=== PATIENT | female | born 1985 | race African-American/Black ===

== ENCOUNTER 2024-03-01 08:28 | Inpatient (IN) | payer SELFPAY ==
[~2024-03-01] VITALS: Ht 165.1 cm; Wt 164.1 kg
[2024-03-01] MEDS ORDERED: HYDROmorphone 0.5 MG/0.5 ML SYRINGE IV ONE ×3 (09:00→11:15)
[2024-03-01] MEDS ORDERED: NS 1,000 ML IV ONE ×2 (09:00→11:30)
[2024-03-01] MEDS ORDERED: diphenhydrAMINE 50 MG/ML 1 ML VIAL IV ONE ×3 (09:00→11:15)
[2024-03-01 09:10] LABS: BASO % 0.6 % (0.0-2.0); EOS # 0.1 K/mm3 (0.0-0.7); EOS % 0.9 % (0.0-4.0); GRAN # 4.5 K/mm3 (1.4-6.5); GRAN % 64.5 % (42.2-75.2); LYMPH # 1.9 K/mm3 (1.2-3.4); LYMPH % 27.6 % (20.0-51.0); MEAN CELL VOLUME 69 fl (80.0-100.0); MEAN CORPUSCULAR HGB CONC 29 g/dl (33.0-37.0); MEAN PLATELET VOLUME 8.9 fl (7.4-10.4); MONO # 0.4 K/mm3 (0.1-0.6); MONO % 5.8 % (1.7-9.3); PLATELET COUNT 451 K/mm3 (130-400); RED BLOOD COUNT 4.87 M/mm3 (4.10-5.30)
[2024-03-01 09:12] LABS: HEMATOCRIT 33.6 % (37.0-47.0); HEMOGLOBIN 9.6 g/dl (12.5-16.0); MEAN CORPUSCULAR HEMOGLOBIN 20 pg (27-31)
[2024-03-01 09:19] LABS: INR 1.6 (0.8-3.0); PROTHROMBIN TIME 17.3 SECONDS (9.7-12.8)
[2024-03-01 09:21] LABS: PARTIAL THROMBOPLASTIN TIME 35.6 SECONDS (26.0-37.0)
[2024-03-01 09:29] LABS: ALBUMIN 3.8 g/dL (3.5-5.0); BILIRUBIN,TOTAL 0.3 mg/dL (0.2-1.2); CALCIUM 9.1 mg/dL (8.4-10.2); CREATININE, serum 0.79 mg/dL (0.57-1.11); POTASSIUM 3.7 mEq/L (3.5-4.5); TOTAL PROTEIN 7.8 g/dl (6.2-8.1)
[2024-03-01] MEDS ORDERED: HYDROXYURE500 MG/CAP PO (13:17)
[2024-03-01] MEDS ORDERED: COUMADIN 5MG5 MG/TAB PO (13:18)
[2024-03-01] MEDS ORDERED: OXYCONTIN60 MG PO (13:20)
[2024-03-01] MEDS ORDERED: FOLIC ACID 11 MG/TA1 PO (13:21)
[2024-03-01] MEDS ORDERED: PERCOCET 325 MG1 TAB PO (13:21)
[2024-03-01] MEDS ORDERED: SEROQUEL 1100 MG/TAB PO (13:22)
[2024-03-01 14:02] VITALS: BP 118/77; PULSE 80; TEMP 98
--- NOTE | 2024-03-01 14:05 | NUR ---
PATIENT CAME FROM ER.PATIENT REPORTS PAIN ALL OVER JOINTS/ BODY AND RATES IT A 10/10. PATIENT CAME WITH A PICC LINE IN RIGHT UPPER ARM PLACED IN [place] WHERE SHE IS FROM. SHE IS CURRENTLY VISITING.PATIENT ASSESSMENT COMPLETED. CALL LIGHT WITHIN REACH. BED AT LOWEST POSITION.
[2024-03-01] MEDS ORDERED: HYDROmorphone 0.5 MG/0.5 ML SYRINGE IV PRN (14:45)
[2024-03-01] MEDS ORDERED: Acetaminophen 325 MG TAB PO PRN (14:45)
[2024-03-01] MEDS ORDERED: NS 1,000 ML IV SCH (14:45)
[2024-03-01] MEDS ORDERED: diphenhydrAMINE 50 MG/ML 1 ML VIAL IV PRN (14:45)
[2024-03-01] MEDS ORDERED: Ondansetron 4 MG/2 ML VIAL IV PRN (14:45)
[2024-03-01] MEDS ORDERED: Albuterol/Ipratropium 3 MG-0.5 MG/3 ML Neb Soln IH PRN (14:45)
[2024-03-01 17:00] VITALS: BP_SYST 135
[2024-03-01 18:12] VITALS: BP 135/83; PULSE 79; TEMP 98.6
--- NOTE | 2024-03-01 18:30 | NUR ---
PATIENT IN BED. PATIENT RATES PAIN AT 10/10. PATIENT PAIN MEDICATION GIVEN. CALL LIGHT WITHIN REACH.
[2024-03-01 21:00] VITALS: BP_SYST 126
[2024-03-01] MEDS ORDERED: QUEtiapine 100 MG TAB PO SCH (21:00)
[2024-03-01] MEDS ORDERED: Hydroxyurea 500 MG CAP PO SCH (21:00)
--- NOTE | 2024-03-01 23:04 | NUR ---
Pt. refused IV fluids at this time. Pt. reports pain at a 8 on pain scale and request pain medication and Benadryl. Meds given per orders. Pt. denies further needs.
[2024-03-01 23:10] VITALS: BP 126/83; PULSE 89; TEMP 98.8
--- NOTE | 2024-03-01 23:24 | NUR ---
Shift assessment complete. Patient is sitting in bed, talking on the phone upon entering room. She reports pain 8/10 at this time. Denies any chest pain, shortness of breath, nausea. Currently refusing her IV fluids and states that she would prefer to have them started when she gets ready for bed. Call light is within reach. Bed locked and in low position.
[2024-03-02] VITALS (12 sets, daily range): BP systolic 103–141; BP diastolic 59–93; PULSE 68–103; TEMP 97.6–98.7
[2024-03-02] MEDS ORDERED: HYDROmorphone 0.5 MG/0.5 ML SYRINGE IV PRN ×3 (06:00→10:00)
[2024-03-02] MEDS ORDERED: HYDROmorphone 0.5 MG/0.5 ML SYRINGE IV ONE ×2 (06:00→06:30)
--- NOTE | 2024-03-02 06:42 | NUR ---
Throughout shift, patient has been requiring her prn dilaudid every 2 hours. States that the dilaudid is not bringing her pain down enough to be tolerable and would like another dose. States that when she was admitted, she was told that if she needed another dose all she had to do was ask. RN called the hospitalist and received orders for an extra 1 mg dilaudid, however, Bravo was not happy with this amount and refused, stating that "that's not what I asked for". RN discussed situation with charge nurse, who then called the hospitalist again and requested that she come and speak to the patient. Although she has refused care from any staff other than the RN, patient was willing to speak with hospitalist and orders were given for another 2 mg dose of IV dilaudid as well as 50 mg IV benadryl. It was again explained to the patient that it would be beneficial if she would allow staff to start her IV fluids, however, she continues to refuse the fluids stating she is "too puffy" and doesn't want the fluids to make her swell more. RN educated her on how IV fluids are used in treatment of sickle cell crisis, but patient stated she "already knows" and does not want them.
[2024-03-02 06:44] LABS: BASO % 0.5 % (0.0-2.0); EOS # 0.2 K/mm3 (0.0-0.7); EOS % 2.6 % (0.0-4.0); GRAN % 63.1 % (42.2-75.2); LYMPH # 1.7 K/mm3 (1.2-3.4); LYMPH % 27.5 % (20.0-51.0); MEAN CELL VOLUME 70 fl (80.0-100.0); MEAN CORPUSCULAR HGB CONC 28 g/dl (33.0-37.0); MEAN PLATELET VOLUME 8.9 fl (7.4-10.4); MONO # 0.4 K/mm3 (0.1-0.6); MONO % 5.8 % (1.7-9.3); PLATELET COUNT 373 K/mm3 (130-400); RED BLOOD COUNT 4.47 M/mm3 (4.10-5.30); REDCELL DISTRIBUTION WIDTH-CV 31.6 % (11.5-14.5)
[2024-03-02 06:53] LABS: HEMATOCRIT 31.2 % (37.0-47.0); HEMOGLOBIN 8.7 g/dl (12.5-16.0); MEAN CORPUSCULAR HEMOGLOBIN 19 pg (27-31)
[2024-03-02 06:58] LABS: INR 1.4 (0.8-3.0); PROTHROMBIN TIME 15.6 SECONDS (9.7-12.8)
[2024-03-02] MEDS ORDERED: Warfarin 5 MG TAB PO SCH (07:00)
[2024-03-02 07:04] LABS: CALCIUM 8.5 mg/dL (8.4-10.2); CREATININE, serum 0.72 mg/dL (0.57-1.11); POTASSIUM 4.1 mEq/L (3.5-4.5)
--- NOTE | 2024-03-02 08:52 | NUR ---
Patient states her pain is not under control and requests to increase her pain med dose. Alert and orineted x 4, Refuses her IV fluids order stating she feels with fluids overload. Assessment completed, meds given. No further needs at this time. Call light within reach.
[2024-03-02] MEDS ORDERED: Polyethylene Glycol 3350 17 GM PDS PO SCH (09:00)
[2024-03-02] MEDS ORDERED: Folic Acid 1 MG TAB PO SCH (09:00)
[2024-03-02] MEDS ORDERED: diphenhydrAMINE 50 MG/ML 1 ML VIAL IV PRN (10:00)
--- NOTE | 2024-03-02 10:09 | NUR ---
community health outreach worker met with patient to complete intake. Patient verified that she lives in [place], [place] and is in [place] for her sister's wedding. Patient lists her sister Charlene Yañez as her primary contact ([phone]), states she does not have a PCP but sees Hematology routinely. Patient has a pharmacy in her hometown and is able to afford her medications. Patient denies having any DME. Patient states she is covered by [employer] insurance which only covers in the state of [place]. She has applied for financial assistance through her [employer] for out of state benefits that will be submitted once she is discharged from hospital. Patient receives Social Security Disability. Patient denies any discharge needs and states her family will pick her up at discharge Discharge plan: Home
[2024-03-02] MEDS ORDERED: Warfarin 5 MG TAB PO ONE (10:30)
--- NOTE | 2024-03-02 11:21 | NUR ---
Pt receiving pain medications as needed, per orders. Pt alert and oriented. Reviewed with Dr. Blanton about alternating with PO meds, stated he will provide the meds the pt ask for and go from there.
--- NOTE | 2024-03-02 15:40 | NUR ---
Patient requested another dose of pain meds. Pt talking by phone with family member. Alert and oriented. Dominga meds provided. Continue monitoring.
--- NOTE | 2024-03-02 18:30 | NUR ---
Patient covered with pain medication PRN, continues rating as 8/10. Alert and oriented, had all her dinner. Refuses fluids. Report will be given to night RN.
--- NOTE | 2024-03-02 20:16 | NUR ---
Shift assessment complete. Patient is reporting pain 9/10 and requesting her next dose of dilaudid, which is given at time of assessment. States she feels like she'll be able to sleep tonight and that pain has been better controlled since pain management orders were adjusted. Provided cereal and milk at patient request. Call light is within reach. Bed is locked and in low position.
[2024-03-02] MEDS ORDERED: Sennosides/Docusate 8.6-50 MG TAB PO SCH (21:00)
[2024-03-03] VITALS (11 sets, daily range): BP systolic 104–142; BP diastolic 60–78; PULSE 82–100; TEMP 97.6–98.6
--- NOTE | 2024-03-03 02:35 | NUR ---
Patient's pain has been better controlled tonight since increasing her dilaudid dosage. She does however continue to refuse IV fluids.
[2024-03-03 07:15] LABS: BASO % 0.7 % (0.0-2.0); EOS # 0.3 K/mm3 (0.0-0.7); EOS % 5.4 % (0.0-4.0); GRAN # 3.2 K/mm3 (1.4-6.5); GRAN % 54.2 % (42.2-75.2); LYMPH # 1.9 K/mm3 (1.2-3.4); LYMPH % 31.5 % (20.0-51.0); MEAN CELL VOLUME 71 fl (80.0-100.0); MEAN CORPUSCULAR HGB CONC 28 g/dl (33.0-37.0); MEAN PLATELET VOLUME 8.7 fl (7.4-10.4); MONO # 0.5 K/mm3 (0.1-0.6); MONO % 7.9 % (1.7-9.3); PLATELET COUNT 331 K/mm3 (130-400); RED BLOOD COUNT 4.25 M/mm3 (4.10-5.30)
[2024-03-03 07:17] LABS: HEMATOCRIT 30.1 % (37.0-47.0); HEMOGLOBIN 8.5 g/dl (12.5-16.0); MEAN CORPUSCULAR HEMOGLOBIN 20 pg (27-31)
[2024-03-03 07:28] LABS: CALCIUM 8.4 mg/dL (8.4-10.2); CREATININE, serum 0.7 mg/dL (0.57-1.11); POTASSIUM 4.2 mEq/L (3.5-4.5)
[2024-03-03 07:30] LABS: INR 1.3 (0.8-3.0); PROTHROMBIN TIME 13.6 SECONDS (9.7-12.8)
--- NOTE | 2024-03-03 11:40 | NUR ---
Data: Patient accepted Carpentry Teacher visit offered during Carpentry Teacher rounds for prayer only. Assessment: Patient desired prayer. Plan of Care: Carpentry Teacher prayed for healing for Patient. Patient thanked Carpentry Teacher. Chaplains will remain available as needed/requested while Patient is admitted to this hospital.
[2024-03-03] MEDS ORDERED: HYDROmorphone 2 MG/1 ML VIAL IV PRN (15:30)
--- NOTE | 2024-03-03 19:00 | NUR ---
Patient continues asking for pain meds and raiting 06/10. She allow us to start fluids per orders since 1800hrs. Report will be given to night RN.
--- NOTE | 2024-03-03 19:45 | NUR ---
Patient resting in bed. Rates her pain at 10/10, prn pain meds given. Needs met. Assessment complete. PICC in right upper arm flushes easily with good blood return. Call light and personal items in reach. Bed in low position and bed alarm on.
--- NOTE | 2024-03-03 21:15 | NUR ---
Patient states her joints, primarily her wrists, feet and ankles, and lower back are swollen and more tender from the touch from the IV fluids. Requests to have fluids disconnected. IVF disconnected at this time.
[2024-03-04] VITALS (12 sets, daily range): BP systolic 92–144; BP diastolic 52–84; PULSE 86–101; TEMP 98–98.9
--- NOTE | 2024-03-04 04:21 | NUR ---
Patient has a MEWS score of 3 for slightly elevated heart rate of 101 and BP of 92/52, patient asymptomatic. Patient assessed and charge nurse notified.
--- NOTE | 2024-03-04 06:10 | NUR ---
Patient resting in bed. Rates pain at 8/10, prn pain meds given. Denies any needs at this time. No changes over night. Call light and personal items in reach. Bed in low position and bed alarm on.
[2024-03-04 07:41] LABS: BASO % 0.6 % (0.0-2.0); EOS # 0.4 K/mm3 (0.0-0.7); EOS % 6.9 % (0.0-4.0); GRAN # 2.6 K/mm3 (1.4-6.5); GRAN % 51.9 % (42.2-75.2); LYMPH # 1.8 K/mm3 (1.2-3.4); LYMPH % 34.5 % (20.0-51.0); MEAN CELL VOLUME 70 fl (80.0-100.0); MEAN CORPUSCULAR HGB CONC 29 g/dl (33.0-37.0); MEAN PLATELET VOLUME 9.2 fl (7.4-10.4); MONO # 0.3 K/mm3 (0.1-0.6); MONO % 5.7 % (1.7-9.3); PLATELET COUNT 336 K/mm3 (130-400)
[2024-03-04 07:45] LABS: HEMATOCRIT 30.2 % (37.0-47.0); HEMOGLOBIN 8.6 g/dl (12.5-16.0); MEAN CORPUSCULAR HEMOGLOBIN 20 pg (27-31)
[2024-03-04 07:54] LABS: INR 1.4 (0.8-3.0); PROTHROMBIN TIME 15.5 SECONDS (9.7-12.8)
[2024-03-04 08:16] LABS: CALCIUM 8.7 mg/dL (8.4-10.2); CREATININE, serum 0.73 mg/dL (0.57-1.11); POTASSIUM 3.7 mEq/L (3.5-4.5)
--- NOTE | 2024-03-04 09:21 | NUR ---
PATIENT RESTING IN BED UPON ENTERING ROOM. MORNING MEDICATIONS ADMINISTERED. PATIENT IS REQUESTING DILAUDID HOURLY. SHE BELIEVES HER PAIN IS FINALLY GETTING TO THE POINT WHERE SHE'S ABLE TO GET SOME SLEEP. SHE RATES HER PAIN AN 8/10 ON ASSESSMENT. PICC LINE FLUSHES AND HAS ADEQUATE BLOOD RETURN. DENIES ANY ADDITIONAL NEEDS AT THIS TIME. WILL CONTINUE TO MONITOR.
--- NOTE | 2024-03-04 20:15 | NUR ---
Initial shift assessment done- states pain all over at 8/10, will give the Dilaudid IV as ordered, is requesting her IV Dialudid every 1 hour and IV Benadryl every 2 hours- states it brings the pain down to 5/10,, relaxing, watching something on her phone- no other requests. VSS.
[2024-03-05] VITALS (12 sets, daily range): BP systolic 94–127; BP diastolic 60–84; PULSE 59–100; TEMP 97.7–98.8
--- NOTE | 2024-03-05 05:58 | NUR ---
Given IV Benadryl and IV Dilaudid as ordered at this time, pt states pain level is 7/10 but does decrease to 3-4/10 after Dilaudid, Pt did call for her Dilaudid IV every hour almost to the minute when due, also getting Benadryl 50 IV every 2 hours also,, did not sleep at all last night , was listening to podcasts and doing some school assignments,was hungry so was given a sandwich box supper and later wanted some cereal /milk. Vitals stable all night
[2024-03-05] MEDS ORDERED: Warfarin 5 MG TAB PO SCH (07:00)
[2024-03-05 08:03] LABS: INR 1.8 (0.8-3.0); PROTHROMBIN TIME 19.8 SECONDS (9.7-12.8)
--- NOTE | 2024-03-05 08:32 | NUR ---
Patient resting in bed, lights off, easily arousable, getting pain meds as prescribed, rating pain 8/10. Assessment completed, meds given. No further needs at this time. Call light within reach.
--- NOTE | 2024-03-05 19:35 | NUR ---
Initial shift assessment done-- in bed, playing gamed on her phone- watching videos, alert/oriented x4, states her pain is between a 7-8/10,, getting her Dilaudid every 1 hour and Benadryl every 2 hrs IV,, no other requests at this time-
--- NOTE | 2024-03-05 23:35 | NUR ---
Pt called for her Dilaudid IV/Benadryl IV, talked with patient that it is about 20 minutes early to give, just had a dose of 3 mg Dilaudid IV at 2257,, pt states that the doctor told her if she wanted it early she could have it, "Not every dose but once in awhile" and she states that she wants to use that early dose now,, informed her I would need to call the doctor for approval- she did not understand why, states 'you can give meds early"......She did end up just waiting the 20 minutes and I gave the Dilaudid IV 3mg and Benadryl IV 50mg at [place].
[2024-03-06] VITALS (11 sets, daily range): BP systolic 100–127; BP diastolic 58–76; PULSE 66–95; TEMP 97.2–98.6
--- NOTE | 2024-03-06 05:55 | NUR ---
NO changes-- did not sleep at all the entire night,, did get her Dilaudid 3 mg IV every 1 hr and Benadryl 50mg IV every 2 hours--pt calls for these 5-10minutes before due so that they are on time. Did have puddings and cereal throughout the night .VSS
--- NOTE | 2024-03-06 07:00 | NUR ---
PT SITTING UP IN BED WATCHING TV. PT APPEARS COMFORTABLE. PT IS ON RA. PT IS AXOX3. PT HAS CALL LIGHT AND INSTRUCTED TO CALL WITH ALL NEEDS.
[2024-03-06] MEDS ORDERED: NS 1,000 ML IV SCH (08:15)
[2024-03-06 08:51] LABS: BASO % 0.7 % (0.0-2.0); EOS # 0.3 K/mm3 (0.0-0.7); GRAN # 2.2 K/mm3 (1.4-6.5); GRAN % 48.6 % (42.2-75.2); LYMPH # 1.7 K/mm3 (1.2-3.4); LYMPH % 37.6 % (20.0-51.0); MEAN CELL VOLUME 70 fl (80.0-100.0); MEAN CORPUSCULAR HGB CONC 28 g/dl (33.0-37.0); MEAN PLATELET VOLUME 9.1 fl (7.4-10.4); MONO # 0.3 K/mm3 (0.1-0.6); MONO % 5.9 % (1.7-9.3); PLATELET COUNT 341 K/mm3 (130-400); RED BLOOD COUNT 4.34 M/mm3 (4.10-5.30)
[2024-03-06 08:54] LABS: HEMATOCRIT 30.5 % (37.0-47.0); HEMOGLOBIN 8.6 g/dl (12.5-16.0); MEAN CORPUSCULAR HEMOGLOBIN 20 pg (27-31)
[2024-03-06 08:56] LABS: INR 1.7 (0.8-3.0); PROTHROMBIN TIME 18.5 SECONDS (9.7-12.8)
[2024-03-06 09:19] LABS: CALCIUM 8.6 mg/dL (8.4-10.2); CREATININE, serum 0.69 mg/dL (0.57-1.11); POTASSIUM 3.7 mEq/L (3.5-4.5)
[2024-03-06] MEDS ORDERED: Warfarin 5 MG TAB PO ONE (15:00)
--- NOTE | 2024-03-06 16:56 | NUR ---
1545-PT REFUSING IVF AT THIS TIME. NOTIFIED.
--- NOTE | 2024-03-06 21:45 | NUR ---
Patient resting in bed. Rates pain at 9/10, prn pain meds given. Needs met. Assessment complete. PICC in right upper arm flushes easily with good blood return. Call light and personal items in reach. Bed in low position.
[2024-03-07] VITALS (10 sets, daily range): BP systolic 106–134; BP diastolic 57–84; PULSE 88–104; TEMP 98–99.1
--- NOTE | 2024-03-07 01:11 | NUR ---
Notified by PCT patient refused vital signs. Patients vital signs have been stable. Patient is awake and alert. Hospitalist Shauna notified.
--- NOTE | 2024-03-07 07:00 | NUR ---
Patient resting in bed. Rates pain at 7/10, prn pain meds given. Needs met. No changes over night. Call light and personal items in reach. Bed in low position.
--- NOTE | 2024-03-07 08:00 | NUR ---
PATIENT RESTING IN BED UPON ENTERING ROOM. SHIFT ASSESSMENT COMPLETED. MORNING MEDICATIONS GIVEN. PATIENT REPORTS 7/10 PAIN. MEDICATIONS GIVEN PER eMAR. PICC LINE FLUSHES AND HAS BLOOD RETURN. PATIENT DENIES ANY ADDITIONAL NEEDS AT THIS TIME. WILL CONTINUE TO MONITOR.
[2024-03-07 08:36] LABS: BASO % 0.4 % (0.0-2.0); EOS # 0.4 K/mm3 (0.0-0.7); EOS % 7.8 % (0.0-4.0); GRAN # 2.3 K/mm3 (1.4-6.5); GRAN % 51.4 % (42.2-75.2); HEMATOCRIT 30.3 % (37.0-47.0); HEMOGLOBIN 8.8 g/dl (12.5-16.0); LYMPH # 1.6 K/mm3 (1.2-3.4); LYMPH % 35.3 % (20.0-51.0); MEAN CELL VOLUME 70 fl (80.0-100.0); MEAN CORPUSCULAR HEMOGLOBIN 20 pg (27-31); MEAN CORPUSCULAR HGB CONC 29 g/dl (33.0-37.0); MEAN PLATELET VOLUME 9.5 fl (7.4-10.4); MONO # 0.2 K/mm3 (0.1-0.6); MONO % 4.9 % (1.7-9.3); PLATELET COUNT 339 K/mm3 (130-400); RED BLOOD COUNT 4.36 M/mm3 (4.10-5.30); REDCELL DISTRIBUTION WIDTH-CV 30.3 % (11.5-14.5)
[2024-03-07 08:37] LABS: CALCIUM 8.3 mg/dL (8.4-10.2); CREATININE, serum 0.67 mg/dL (0.57-1.11); INR 1.6 (0.8-3.0); PROTHROMBIN TIME 17.8 SECONDS (9.7-12.8)
[2024-03-07] MEDS ORDERED: Warfarin 5 MG TAB PO ONE (11:30)
[2024-03-08] VITALS (10 sets, daily range): BP systolic 114–166; BP diastolic 74–109; PULSE 83–107; TEMP 98–99.2
[2024-03-08 07:28] LABS: INR 2.1 (0.8-3.0); PROTHROMBIN TIME 22.3 SECONDS (9.7-12.8)
[2024-03-08 07:43] LABS: CALCIUM 8.4 mg/dL (8.4-10.2); CREATININE, serum 0.65 mg/dL (0.57-1.11); POTASSIUM 3.6 mEq/L (3.5-4.5)
--- NOTE | 2024-03-08 07:45 | NUR ---
PATIENT AWAKE AND ALERT, SITTING UP IN BED ON HER PHONE, CALL LIGHT WITHIN REACH. PATIENT STATING HER PAIN IS 8/10 AND NEEDS HER PAIN MEDICAITON.
[2024-03-08 08:06] LABS: BASO % 0.6 % (0.0-2.0); EOS # 0.2 K/mm3 (0.0-0.7); EOS % 4.3 % (0.0-4.0); GRAN # 2.5 K/mm3 (1.4-6.5); GRAN % 52.7 % (42.2-75.2); LYMPH # 1.7 K/mm3 (1.2-3.4); LYMPH % 35.6 % (20.0-51.0); MEAN CELL VOLUME 69 fl (80.0-100.0); MEAN CORPUSCULAR HGB CONC 29 g/dl (33.0-37.0); MEAN PLATELET VOLUME 8.7 fl (7.4-10.4); MONO # 0.3 K/mm3 (0.1-0.6); MONO % 6.4 % (1.7-9.3); PLATELET COUNT 304 K/mm3 (130-400); RED BLOOD COUNT 4.42 M/mm3 (4.10-5.30)
[2024-03-08 08:07] LABS: HEMATOCRIT 30.4 % (37.0-47.0); HEMOGLOBIN 8.9 g/dl (12.5-16.0); MEAN CORPUSCULAR HEMOGLOBIN 20 pg (27-31)
[2024-03-08] MEDS ORDERED: COUMADIN 1010 MG/TAB PO (09:03)
--- NOTE | 2024-03-08 12:00 | NUR ---
patient refused vital signs. per patient "my arm hurts"
--- NOTE | 2024-03-08 12:20 | NUR ---
PATIENTS LAST PICC LINE DRESSING CHANGE WAS 03/02/24. AIVS TO [facility] CHANGE DRESSING PRIOR TO PATIETN DISCHARGE TODAY
--- NOTE | 2024-03-08 16:00 | NUR ---
PATIENT AWAKE AND ALERT, SITTING IN BED. PATIENT IS ALWAYS AT 7/10 ON HER PAIN SCALE. PATIENT APPEARS TO BE IN NO ACUTE DISTRESS OR PAIN AT THIS TIME. [facility]
--- NOTE | 2024-03-08 17:53 | NUR ---
PATIENT PLANS TO LEAVE AFTER 1945PM DOSE OF BENADRYL AND DIALUDID.
--- NOTE | 2024-03-08 19:15 | NUR ---
PATIENT RESTING IN BED WITH TV OFF WITH NO FAMILY PRESENT WITH NO ACUTE DISTRESS NOTED. PATIENT ON ROOM AIR. PICC LINE TO RIGHT UPPER ARM INTACT WITH NO COMPLICATIONS NOTED. PATIENT DENIES ANY NEEDS AT THIS TIME. PATIENT CARE ASSUMED FROM [facility]. BED IN LOW POSITION WITH WHEELS LOCKED WITH RAILS UP X2 AND CALL LIGHT WITHIN REACH.
--- NOTE | 2024-03-08 20:27 | NUR ---
PATIENT RESTING IN BED WITH TV OFF WITH NO FAMILY PRESENT WITH NO ACUTE DISTRESS NOTED. PATIENT ON ROOM AIR. PICC LINE TO RIGHT UPPER ARM INTACT WITH NO COMPLICATIONS NOTED. PATIENT C/O PAIN. PATIENT STATES PAIN LEVEL IS 7 ON SCALE OF 0 TO 10. ASSESSMENT AND MEDICATION ADMINISTRATION COMPLETED AT THIS TIME. PATIENT TOLERATED WELL. ALL NEEDS MET. BED IN LOW POSITION WITH WHEELS LOCKED WITH RAILS UP X2 AND CALL LIGHT WITHIN REACH.
[2024-03-09] VITALS: BP_SYST 123
[2024-03-09 03:39] VITALS: BP 133/83; PULSE 87; TEMP 98.9
[2024-03-09 04:00] VITALS: BP_SYST 133
--- NOTE | 2024-03-10 16:49 | NUR ---
LATE ENTRY FROM 03/09/24 Adult Parole Officer met with patient who was discharged yesterday, however did not leave yesterday and stayed another night in her room. Patient advised her flight was changed and that she notified the nurse yesterday of this. Patient reported this needed to be changed because she cannot fly through [place] due to her sickle cell crisis. Patient was adamant that there was no issues with finding a ride, just that she wanted to time everything so that she left the hospital and was able to go directly to the airport. Patient stated she needed to get her medications here as she did not have medications with her to get home with. Patient stated her family is in [place] and supportive. Patient stated her brother in law s sister would be picking her up today to take her to the airport.
== END 2024-03-09 22:00 | disposition home or self-care (01) | DRG 812 ==
LOC: COL.ER 08:28 → MEDICAL 13:08
PROVIDERS: Emergency Medicine; Hospitalist; Physician Assistant; ADMIT Internal Medicine
DX: D57.00 Hb-SS disease with crisis, unspecified (principal); D50.9 Iron deficiency anemia, unspecified; Z88.6 Allergy status to analgesic agent; Z79.899 Other long term (current) drug therapy; Z79.01 Long term (current) use of anticoagulants; Z86.718 Personal history of other venous thrombosis and embolism
CPT/HCPCS: J1170; J1200; J1650; J7030